=== PATIENT | female | born 1935 | race Caucasian/White ===

== ENCOUNTER 2018-11-25 14:43 | Inpatient (IN) | payer MEDICARE, OTHER ==
[2018-10-15] MEDS: SODIUM CHLORIDE FLUSH 10ML SYR IVF SCH (21:00)
[~2018-11-25] VITALS: Ht 165.1 cm; Wt 51.6 kg
--- NOTE | 2018-11-25 15:20 | NUR ---
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 PT DENIES ANY DIZZINESS, LIGHTHEADEDNESS OR SYNCOPE. PT TELLING STORIES AND DIFFICULT TO STAY ON TRACK, BUT ANSWERS ALL QUESTIONS APPROPRIATELY. PT ON CONT BP, HR, AND O2 MONITORS. CALL LIGHT WITHIN REACH. WILL CONT TO MONITOR PT.
[2018-11-25] MEDS ORDERED: SODIUM CHLORIDE FLUSH 10ML SYR IVF ONE (15:30)
--- NOTE | 2018-11-25 15:36 | NUR ---
PT WAS ABLE TO VOID 550ML BUT KENNEDY RUTH USD US AND NOTED THAT PT'S BLADDER WAS STILL PALPABLE AND FULL OF URINE. CATHETER PLACED TO ATTEMPT TO BRING BLOOD PRESSURE DOWN. KENNEDY RUTH AWARE OF BP OF 200/62. WILL MONITOR BP AFTER BLADDER HAS HAD A CHANCE TO DRAIN. PT ON CONT TO MONITOR PT.
--- NOTE | 2018-11-25 15:45 | NUR ---
task RN: Dr. Burton at bedside to elle pt
[2018-11-25] MEDS ORDERED: MIDAZOLAM 1 MG/ML, 2ML ONE ×2 (16:14→17:04)
[2018-11-25] MEDS ORDERED: FENTANYL PF 100 MCG/2ML ONE ×2 (16:14→17:04)
[2018-11-25] MEDS ORDERED: CEFAZOLIN PMX 1GM/50ML 50 ML ONE (16:14)
[2018-11-25] MEDS ORDERED: LIDOCAINE 1%, 20ML ONE (16:14)
[2018-11-25] MEDS ORDERED: CEFAZOLIN 1,000 MG ONE (16:15)
--- NOTE | 2018-11-25 16:43 | NUR ---
REPORT TO PIERRE ERAZO IN [facility]. PT TRANSPORTED TO [facility] WITHOUT INCIDENT.
[2018-11-25] MEDS ORDERED: HYDROcodone/APAP 5/325 TABLET PO PRN (18:00)
[2018-11-25] MEDS ORDERED: HOLD MEDICATION MC PRN (18:00)
[2018-11-25] MEDS ORDERED: ZOLPIDEM 5MG TABLET PO PRN (18:00)
[2018-11-25] MEDS ORDERED: BETH25TA16 PO (18:38)
[2018-11-25] MEDS ORDERED: BISACODYL 10 MG SUPP PR PRN (19:00)
[2018-11-25] MEDS ORDERED: ONDANSETRON ODT 4 MG PO PRN (19:00)
[2018-11-25] MEDS ORDERED: ACETAMINOPHEN 325 MG TABLET PO PRN (19:00)
[2018-11-25] MEDS ORDERED: POLYETHYLENE GLYCOL 17 GM PACKET PO PRN (19:00)
[2018-11-25] MEDS ORDERED: hydrALAzine 20 MG/ML, 1ML IV PRN (19:00)
[2018-11-25 19:06] VITALS: BP 184/79
[2018-11-25 19:17] LABS: BASOPHILS # (AUTO) 0.04 x10^3/uL (0-0.1); BASOPHILS % (AUTO) 1 % (0-1); EOSINOPHILS # (AUTO) 0.03 x10^3/uL (0-0.4); EOSINOPHILS % (AUTO) 1 % (1-7); LYMPHOCYTES # (AUTO) 1.24 x10^3/uL (1-3.4); LYMPHOCYTES % (AUTO) 19 % (22-44); MD NO; MEAN CORPUSCULAR HEMOGLOBIN 28.6 pg (27.0-34.8); MEAN CORPUSCULAR HGB CONC 31.8 g/dL (32.4-35.8); MEAN CORPUSCULAR VOLUME 89.8 fL (80-100); MEAN PLATELET VOLUME 12.1 fL (7.4-10.4); MONOCYTES # (AUTO) 0.44 x10^3/uL (0.2-0.8); MONOCYTES % (AUTO) 7 % (2-9); NEUTROPHILS # (AUTO) 4.89 x10^3/uL (1.8-6.8); NEUTROPHILS % (AUTO) 74 % (42-75); PLATELET COUNT 151 x10^3/uL (130-400); RED BLOOD COUNT 5.22 x10^6/uL (3.82-5.3); RED CELL DISTRIBUTION WIDTH 15.5 % (9.6-15.2)
[2018-11-25 19:30] LABS: ALANINE AMINOTRANSFERASE 30 U/L (12-78); ALBUMIN 3.7 g/dL (3.4-5.0); ANION GAP 9 mmol/L (5-15); BILIRUBIN,TOTAL 0.9 mg/dL (0.2-1.0); CALCIUM 8.9 mg/dL (8.5-10.1); CHLORIDE 111 mmol/L (98-107); CREATININE 1.17 mg/dL (0.55-1.02); TOTAL PROTEIN 7.6 g/dL (6.4-8.2)
[2018-11-25 19:31] LABS: ALKALINE PHOSPHATASE 126 U/L (45-117)
[2018-11-25] MEDS ORDERED: ONDANSETRON 2MG/ML, 2ML IVPush PRN (20:00)
[2018-11-25 20:29] LABS: CULTURE INDICATED? YES; MICROSCOPIC AUTO
[2018-11-25] MEDS: SODIUM CHLORIDE FLUSH 10ML SYR IVF SCH ×2 (22:39)
[2018-11-25] MEDS: LISINOPRIL 10 MG TABLET PO SCH (22:39)
[2018-11-25] MEDS: BETHANECHOL 25 MG TABLET PO SCH (23:16)
[2018-11-25] MEDS: CEFAZOLIN PMX 1GM/50ML 50 ML IVPB SCH (23:53)
[2018-11-26 00:38] VITALS: BP 116/67
[2018-11-26 06:03] LABS: MEAN CORPUSCULAR HEMOGLOBIN 28.9 pg (27.0-34.8); MEAN CORPUSCULAR HGB CONC 32.3 g/dL (32.4-35.8); MEAN CORPUSCULAR VOLUME 89.5 fL (80-100); MEAN PLATELET VOLUME 12.4 fL (7.4-10.4); PLATELET COUNT 164 x10^3/uL (130-400); RED BLOOD COUNT 4.95 x10^6/uL (3.82-5.3); RED CELL DISTRIBUTION WIDTH 14.9 % (9.6-15.2)
[2018-11-26 06:04] LABS: ALBUMIN 3.6 g/dL (3.4-5.0); ANION GAP 9 mmol/L (5-15); CALCIUM 9.1 mg/dL (8.5-10.1); CHLORIDE 109 mmol/L (98-107)
[2018-11-26 06:08] LABS: ALANINE AMINOTRANSFERASE 24 U/L (12-78); ALKALINE PHOSPHATASE 121 U/L (45-117); BILIRUBIN,TOTAL 1.1 mg/dL (0.2-1.0); CREATININE 1.27 mg/dL (0.55-1.02); TOTAL PROTEIN 7.5 g/dL (6.4-8.2)
[2018-11-26 06:31] LABS: BASOPHILS # (AUTO) 0.01 x10^3/uL (0-0.1); BASOPHILS % (AUTO) 0 % (0-1); EOSINOPHILS % (AUTO) 0 % (1-7); LYMPHOCYTES # (AUTO) 0.66 x10^3/uL (1-3.4); LYMPHOCYTES % (AUTO) 7 % (22-44); MD SCAN; MONOCYTES # (AUTO) 0.43 x10^3/uL (0.2-0.8); MONOCYTES % (AUTO) 5 % (2-9); NEUTROPHILS # (AUTO) 7.81 x10^3/uL (1.8-6.8); NEUTROPHILS % (AUTO) 88 % (42-75)
[2018-11-26 07:54] VITALS: BP 105/60
[2018-11-26] MEDS: SENNA/DOCUSATE TABLET PO SCH (07:55)
[2018-11-26] MEDS: SODIUM CHLORIDE FLUSH 10ML SYR IVF SCH ×3 (09:41→21:21)
[2018-11-26] MEDS: CEFAZOLIN PMX 1GM/50ML 50 ML IVPB SCH ×2 (09:41→16:18)
[2018-11-26] MEDS: BETHANECHOL 25 MG TABLET PO SCH ×3 (09:41→21:20)
[2018-11-26] MEDS: LISINOPRIL 10 MG TABLET PO SCH ×2 (09:41→21:20)
[2018-11-26 13:00] VITALS: BP 145/74
[2018-11-26 18:39] VITALS: BP 145/75
[2018-11-27 00:16] VITALS: BP 145/74
[2018-11-27 01:47] VITALS: BP 153/76
[2018-11-27 06:40] VITALS: BP 153/79
[2018-11-27] MEDS ORDERED: REGADENOSON 0.4 MG/5 ML SYRINGE ONE (08:16)
[2018-11-27] MEDS: LISINOPRIL 10 MG TABLET PO SCH ×2 (10:37→20:51)
[2018-11-27] MEDS: BETHANECHOL 25 MG TABLET PO SCH ×3 (10:37→20:51)
[2018-11-27] MEDS: SENNA/DOCUSATE TABLET PO SCH (10:37)
[2018-11-27] MEDS: SODIUM CHLORIDE FLUSH 10ML SYR IVF SCH ×2 (10:38→20:52)
[2018-11-27 13:15] VITALS: BP 125/74
[2018-11-27 19:16] VITALS: BP 112/72
[2018-11-27] MEDS: ATORVASTATIN 20 MG TABLET PO SCH (20:51)
[2018-11-28 02:09] VITALS: BP 119/74
[2018-11-28 06:58] VITALS: BP 131/74
[2018-11-28] MEDS: SODIUM CHLORIDE FLUSH 10ML SYR IVF SCH ×2 (07:43→20:00)
[2018-11-28] MEDS: ASPIRIN 81 MG TABLET CHEW PO SCH (09:50)
[2018-11-28] MEDS: LISINOPRIL 10 MG TABLET PO SCH ×2 (09:50→20:00)
[2018-11-28] MEDS: SENNA/DOCUSATE TABLET PO SCH (09:50)
[2018-11-28] MEDS: BETHANECHOL 25 MG TABLET PO SCH ×3 (09:51→20:00)
[2018-11-28 14:44] VITALS: BP 114/62
[2018-11-28 19:13] VITALS: BP 139/68
[2018-11-28] MEDS: ATORVASTATIN 20 MG TABLET PO SCH (19:59)
[2018-11-29 00:48] VITALS: BP 171/79
[2018-11-29 05:46] LABS: BASOPHILS # (AUTO) 0.03 x10^3/uL (0-0.1); BASOPHILS % (AUTO) 1 % (0-1); EOSINOPHILS # (AUTO) 0.09 x10^3/uL (0-0.4); EOSINOPHILS % (AUTO) 1 % (1-7); LYMPHOCYTES # (AUTO) 1.26 x10^3/uL (1-3.4); LYMPHOCYTES % (AUTO) 21 % (22-44); MD NO; MEAN CORPUSCULAR HEMOGLOBIN 29.6 pg (27.0-34.8); MEAN CORPUSCULAR HGB CONC 32.6 g/dL (32.4-35.8); MEAN CORPUSCULAR VOLUME 90.7 fL (80-100); MEAN PLATELET VOLUME 12.7 fL (7.4-10.4); MONOCYTES # (AUTO) 0.56 x10^3/uL (0.2-0.8); MONOCYTES % (AUTO) 9 % (2-9); NEUTROPHILS # (AUTO) 4.08 x10^3/uL (1.8-6.8); NEUTROPHILS % (AUTO) 68 % (42-75); PLATELET COUNT 127 x10^3/uL (130-400); RED BLOOD COUNT 4.45 x10^6/uL (3.82-5.3); RED CELL DISTRIBUTION WIDTH 15.1 % (9.6-15.2)
[2018-11-29 05:54] LABS: ALANINE AMINOTRANSFERASE 16 U/L (12-78); ALBUMIN 3.1 g/dL (3.4-5.0); ANION GAP 5 mmol/L (5-15); CALCIUM 8.8 mg/dL (8.5-10.1); CHLORIDE 113 mmol/L (98-107); CREATININE 1.04 mg/dL (0.55-1.02)
[2018-11-29 05:56] LABS: ALKALINE PHOSPHATASE 111 U/L (45-117); BILIRUBIN,TOTAL 0.6 mg/dL (0.2-1.0); TOTAL PROTEIN 6.4 g/dL (6.4-8.2)
[2018-11-29 08:48] VITALS: BP 171/77
[2018-11-29] MEDS: SENNA/DOCUSATE TABLET PO SCH (08:54)
[2018-11-29] MEDS: BETHANECHOL 25 MG TABLET PO SCH ×4 (08:55→20:57)
[2018-11-29] MEDS: ASPIRIN 81 MG TABLET CHEW PO SCH (08:55)
[2018-11-29] MEDS: LISINOPRIL 10 MG TABLET PO SCH ×3 (08:56→20:57)
[2018-11-29] MEDS: SODIUM CHLORIDE FLUSH 10ML SYR IVF SCH ×2 (08:57→21:00)
[2018-11-29] MEDS ORDERED: LISI-167 PO (09:26)
[2018-11-29] MEDS ORDERED: ATOR20TA37 PO (09:26)
[2018-11-29] MEDS ORDERED: ASPI-515 PO (09:26)
[2018-11-29 13:32] VITALS: BP 133/76
[2018-11-29] MEDS: ATORVASTATIN 20 MG TABLET PO SCH (20:57)
== END 2018-11-29 22:30 | disposition left against medical advice (07) | DRG 242 ==
LOC: ED 15:54 → EDIP 15:55 → ED 16:31 → 5SO 18:02 → 3NE 11-28 06:24
PROVIDERS: ADMIT Internal Medicine; ATTEND Internal Medicine
PROC: 02H63JZ Insertion of Pacemaker Lead into Right Atrium, Percutaneous Approach (ICD-10-PCS; principal; 2018-11-25)
PROC: 02HK3JZ Insertion of Pacemaker Lead into Right Ventricle, Percutaneous Approach (ICD-10-PCS; 2018-11-25)
PROC: 0JH606Z Insertion of Pacemaker, Dual Chamber into Chest Subcutaneous Tissue and Fascia, Open Approach (ICD-10-PCS; 2018-11-25)
PROC: 0T9B70Z Drainage of Bladder with Drainage Device, Via Natural or Artificial Opening (ICD-10-PCS; 2018-11-25)
DX: I44.2 Atrioventricular block, complete (principal); E43 Unspecified severe protein-calorie malnutrition; I16.0 Hypertensive urgency; H40.9 Unspecified glaucoma; J98.4 Other disorders of lung; R33.9 Retention of urine, unspecified; Z60.2 Problems related to living alone; I12.9 Hypertensive chronic kidney disease with stage 1 through stage 4 chronic kidney disease, or unspecified chronic kidney disease; N18.3 Chronic kidney disease, stage 3 (moderate); R45.1 Restlessness and agitation; G31.84 Mild cognitive impairment of uncertain or unknown etiology; Z82.49 Family history of ischemic heart disease and other diseases of the circulatory system; Z85.118 Personal history of other malignant neoplasm of bronchus and lung; Z85.43 Personal history of malignant neoplasm of ovary; Z85.828 Personal history of other malignant neoplasm of skin; Z90.5 Acquired absence of kidney; Z90.710 Acquired absence of both cervix and uterus; Z90.49 Acquired absence of other specified parts of digestive tract; Z88.8 Allergy status to other drugs, medicaments and biological substances; Z88.1 Allergy status to other antibiotic agents; Z90.2 Acquired absence of lung [part of]; Z90.722 Acquired absence of ovaries, bilateral
CPT/HCPCS: 33208; 36415; 71045; 78452; 80053; 81001; 82607; 84443; 85025; 87086; 93005; 93017; 93306; 99156; 99157; 99285; C1779; C1785; C1892; G0378; J0690; J2250; J2785; J3010; 92522-GN; A9502; C9898; J0360